=== PATIENT | female | born 1990 | race Caucasian/White ===

== ENCOUNTER 2017-12-30 11:05 | Day surgery (SDC) | payer MEDICAID, OTHER ==
[~2017-12-30] VITALS: Ht 160 cm; Wt 62.2 kg
[~2017-12-30 11:05] MED LIST: BUPIVACAINE/PF 0.5% ONE; CEFAZOLIN 1,000 MG ONE; DEXAMETHASONE 4 MG/ML, 1ML ONE; FENTANYL PF 250 MCG/5ML ONE; GLYCOPYRROLATE 0.4 MG/2 ML, 2ML ONE; LEVO50TA5 PO; MIDAZOLAM 1 MG/ML, 2ML ONE; MULT-516 PO; MULT-672 PO; NEOSTIGMINE 1 MG/ML, 10ML ONE; ONDANSETRON 2MG/ML, 2ML ONE; PROPOFOL 10 MG/ML, 20ML ONE; RANI150T4 PO; ROCURONIUM 10 MG/ML,10ML ONE; SODIUM CHLORIDE 0.9% PF 10ML ONE
[2017-12-30] MEDS ORDERED: LACTATED RINGERS 1,000 ML IV SCH ×2 (11:16→12:40)
[2017-12-30 11:30] LABS: HCG UR SG 1.017 (1.003-1.030)
[2017-12-30] MEDS ORDERED: MEPERIDINE/PF 25MG/0.5ML IVPush PRN (11:30)
[2017-12-30] MEDS ORDERED: HYDROmorphone 1 MG/ML, 1ML IV PRN (11:30)
[2017-12-30] MEDS ORDERED: OXYcodone 5 MG/5 ML ORAL.SOL UDC PO PRN (11:30)
[2017-12-30] MEDS ORDERED: ONDANSETRON 2MG/ML, 2ML IVPush PRN ×2 (11:30→13:00)
[2017-12-30] MEDS ORDERED: LABETALOL 5MG/ML, 20ML IV PRN (11:30)
[2017-12-30] MEDS ORDERED: PROMETHAZINE 12.5 MG SUPP PR PRN (11:30)
[2017-12-30] MEDS ORDERED: hydrALAzine 20 MG/ML, 1ML IV PRN (11:30)
[2017-12-30 11:36] VITALS: BP 120/79
[2017-12-30] MEDS ORDERED: FENTANYL PF 100 MCG/2ML ONE ×3 (11:55→12:51)
[2017-12-30] MEDS ORDERED: EPINEPHRINE 1 MG/ML, 1ML INFIL ONE (11:59)
[2017-12-30] MEDS ORDERED: OXYcodone 5 MG/5 ML ORAL.SOL UDC ONE (12:51)
[2017-12-30] MEDS: FENTANYL PF 100 MCG/2ML IV PRN ×2 (12:55→13:07)
[2017-12-30] MEDS ORDERED: HYDROcodone/APAP 7.5-325MG/15ML UDC PO PRN (13:00)
[2017-12-30] MEDS ORDERED: morphine SULFATE 10 MG/ML, 1ML IVPush PRN (13:00)
[2017-12-30] MEDS ORDERED: DIPHENHYDRAMINE 50 MG/ML, 1ML IVPush PRN (13:00)
[2017-12-30] MEDS ORDERED: HYDROmorphone 2 MG/ML, 1ML ONE (13:10)
== END 2017-12-30 17:00 ==
LOC: OUT 11:05
PROVIDERS: ATTEND Thoracic Surgery (Cardiothoracic Vascular Surgery)
DX: K44.9 Diaphragmatic hernia without obstruction or gangrene (principal); E03.9 Hypothyroidism, unspecified; K21.9 Gastro-esophageal reflux disease without esophagitis
CPT/HCPCS: 43282; 81025; J0171; J0690; J1100; J1170; J2250; J2405; J2704; J2710; J3010; J3490; J7120